=== PATIENT | male | born 1990 | race Caucasian/White ===

== ENCOUNTER 2019-11-16 04:15 | Emergency (ER) | payer SELFPAY ==
[~2019-11-16] VITALS: Ht 175.3 cm; Wt 77.1 kg
[2019-11-16 04:25] VITALS: BP 135/89
--- NOTE | 2019-11-16 04:29 | Emergency Room Report ---
History of Present Illness General Chief Complaint: Substance Abuse Source: Patient, EMS Present Illness HPI This is a 29-year-old male with no past medical history. He presents with chief complaint of bizarre behavior. According to EMS, patient woke up was feeling agitated and anxious. He called 911. He took 4 edibles tonight. Denies any other drug use. Per EMS, he was calm initially and then became more agitated and appeared to be very paranoid. Here he is not cooperating. He is shaking and calling all over the bed. He keeps grabbing at things. Patient is not cooperating with a history. Per EMS, girlfriend said he has no psychiatric history or drug abuse. Allergies: Coded Allergies: UNABLE TO ASSESS (Unverified , 11/16/19) COVID-19 Screening COVID-19 risk:Contact w/high r: No Has patient experienced lloyd: No COVID-19 Testing performed PULMONARY DISEASE SPECIALIST: No Patient History Past Medical History: see triage record, old chart reviewed Past Surgical History: none Family History: none Social History: other Immunizations: other Reviewed Nursing Documentation: PMH: Agreed; PSxH: Agreed Nursing Documentation-PMH Past Medical History: Deferred Review of Systems All Other Systems: limited - Patient is not cooperative Physical Exam Vital Signs Date Time Temp Pulse Resp B/P (MAP) Pulse Ox O2 Delivery O2 Flow Rate FiO2 11/16/19 04:16 98.1 140 16 146/96 (113) 99 Room Air Vitals with tachycardia Sp02 EP Interpretation: reviewed, normal General Appearance: alert/responsive, no apparent distress, non-toxic Head: normocephalic, atraumatic Eyes: PERRL, EOMI ENT: oropharynx normal Neck: supple/symm/no masses Respiratory: effort normal, no rhonchi, no wheezing Cardiovascular: regular rate, rhythm - Tachycardia, no murmur, gallop, rub Gastrointestinal: non-tender, no mass, non-distended, no rebound/guarding, normal bowel sounds Musculoskeletal: gait & station normal Neurologic: oriented x3, sensory intact, motor strength/tone normal Psychiatric: other - Patient appears to be anxious and paranoid. He is not cooperating. Appear to be agitated. Skin: no rash, normal palpation Medical Decision Making Diagnostic Impression: Primary Impression: Drug-induced psychotic disorder Qualified Codes: F19.959 - Other psychoactive substance use, unspecified with psychoactive substance-induced psychotic disorder, unspecified Additional Impression: Cocaine abuse ER Course Patient with drug-induced psychosis. Laboratory data and drug screen pending. If unremarkable, patient can be discharged home. Patient is given Haldol and Ativan here. He seemed to be much calmer because of it. Patient felt better now. Back to baseline. Admits to using cocaine. Will discharge home. Last Vital Signs Date Time Temp Pulse Resp B/P (MAP) Pulse Ox O2 Delivery O2 Flow Rate FiO2 11/16/19 04:16 98.1 140 16 146/96 (113) 99 Room Air Status: improved Disposition: HOME, SELF-CARE Condition: Stable Patient Instructions: Substance Use Disorder Additional Instructions: Abstain from drugs and alcohol. Follow-up with your doctor in 7 days. Return if symptoms worsen. Chano Griffin MD Nov 16, 2019 04:29
[2019-11-16] MEDS ORDERED: Haloperidol 5mg/ml Inj IM ONE (04:30)
[2019-11-16 05:11] LABS: APPEARANCE,URINE CLEAR; BILIRUBIN, URINE NEGATIVE (NEGATIVE); COLOR,URINE PALE YELLOW; GLUCOSE, URINE (UA) NEGATIVE (NEGATIVE); KETONES,URINE NEGATIVE (NEGATIVE); LEUKOCYTE ESTERASE ,URINE NEGATIVE (NEGATIVE); NITRITE,URINE NEGATIVE (NEGATIVE); PH,URINE 5 (4.5-8.0); PROTEIN,URINE NEGATIVE (NEGATIVE); UROBILINOGEN,URINE NORMAL MG/DL (0.0-1.0)
[2019-11-16 05:15] LABS: BASOPHILS % (AUTO) 1.6 % (0.0-2.0); EOSINOPHILS % (AUTO) 7.6 % (0.0-3.0); HEMATOCRIT 46.1 % (42.0-52.0); HEMOGLOBIN 15.9 G/DL (14.2-18.0); LYMPHOCYTES % (AUTO) 35.6 % (20.0-45.0); MEAN CORPUSCULAR VOLUME 92 FL (80-99); MONOCYTES % (AUTO) 12.1 % (1.0-10.0); NEUTROPHILS % (AUTO) 43.1 % (45.0-75.0); PLATELET COUNT 280 K/UL (150-450); RED BLOOD COUNT 4.99 M/UL (4.70-6.10); RED CELL DISTRIBUTION WIDTH 12.2 % (11.6-14.8); WHITE BLOOD COUNT 4.1 K/UL (4.8-10.8)
[2019-11-16 05:18] LABS: ANION GAP 12 mmol/L (5-15); BLOOD UREA NITROGEN 6 mg/dL (7-18); CALCIUM 8.8 MG/DL (8.5-10.1); CARBON DIOXIDE 26 MMOL/L (21-32); CHLORIDE 103 MMOL/L (98-107); CREATININE 1.2 MG/DL (0.55-1.30); POTASSIUM 3.7 MMOL/L (3.5-5.1); SODIUM 141 MMOL/L (136-145)
[2019-11-16 05:23] LABS: ALANINE AMINOTRANSFERASE 25 U/L (12-78); ALBUMIN 4.2 G/DL (3.4-5.0); ALKALINE PHOSPHATASE 117 U/L (46-116); ASPARTATE AMINO TRANSFERASE 33 U/L (15-37); BILIRUBIN,TOTAL 0.7 MG/DL (0.2-1.0)
[2019-11-16 06:00] VITALS: BP 133/78
== END 2019-11-16 06:00 | disposition home or self-care (01) ==
LOC: EDBD 04:15 → EMR 04:56
DX: F19.959 Other psychoactive substance use, unspecified with psychoactive substance-induced psychotic disorder, unspecified (principal); F14.10 Cocaine abuse, uncomplicated
CPT/HCPCS: 36415; 80053; 80307; 81003; 85025; 96360; 96372; 99284; G0480; J1630; J7030